=== PATIENT | male | born 1995 ===

== ENCOUNTER 2018-12-29 22:28 | Emergency (ER) | payer OTHER ==
[2018-12-29] MEDS ORDERED: METHYLPREDNISOLONE 125 MG INJ ONE (22:58)
[2018-12-29] MEDS ORDERED: AZITHROMYCIN 250 MG TAB ONE (22:59)
[2018-12-29] MEDS ORDERED: IPRATROPIUM BROM 0.5MG/2.5ML ONE (22:59)
[2018-12-29] MEDS ORDERED: ALBUTEROL 2.5 MG/3 ML NEB SOL ONE (22:59)
--- NOTE | 2018-12-30 | ER ---
Nurse's Notes [facility] Name: Flo Ariza Age: 23 yrs Sex: Male : 1995 Arrival Date: 12/29/2018 Time: 22:33 Bed 8 Private MD: Diagnosis: Asthma;Cough;Fever, unspecified Presentation: 12/29 22:49 Presenting complaint: Patient states: Reports he started having fever,congestion, SOB, ea fatigue and chest pain since Friday. Transition of care: patient was not received from another setting of care. Onset of symptoms was December 29, 2018. Risk Assessment: Do you want to hurt yourself or someone else? Patient reports no desire to harm self or others. Initial Sepsis Screen: Does the patient meet any 2 criteria? No. Patient's initial sepsis screen is negative. Does the patient have a suspected source of infection? No. Patient's initial sepsis screen is negative. Care prior to arrival: Medication(s) given: Motrin, Tylenol. 22:49 Method Of Arrival: Ambulatory ea 22:49 Acuity: ALISON 3 ea Triage Assessment: 22:52 General: Appears uncomfortable, Behavior is appropriate for age. Pain: Complains of ea pain in chest Also complains of reports chest pain with cough. Neuro: Level of Consciousness is awake, alert, obeys commands, Oriented to person, place, time, situation. Derm: Skin is pink, warm \T\ dry. Historical: - Allergies: 22:52 Bactrim; ea 22:52 PENICILLINS; ea - Home Meds: 22:52 None [Active]; ea - PMHx: 22:52 Asthma; ea - PSHx: 22:52 None; ea - Immunization history:: Adult Immunizations up to date. - Social history:: Smoking status: Patient/guardian denies using tobacco. - Ebola Screening: : No symptoms or risks identified at this time. Screenin:50 Abuse screen: Denies threats or abuse. Nutritional screening: No deficits noted. ea Tuberculosis screening: No symptoms or risk factors identified. Fall Risk None identified. Assessment: 23:03 General: Appears in no apparent distress. Behavior is calm, cooperative. Pain: Denies ak1 pain. Neuro: Level of Consciousness is awake, alert, obeys commands, Oriented to person, place, time, situation, Process Safety Management Engineer are equal bilaterally Moves all extremities. Full function. Cardiovascular: No deficits noted. Respiratory: Airway is patent Respiratory effort is even, unlabored, Respiratory pattern is regular, symmetrical, Breath sounds with wheezes. GI: No signs and/or symptoms were reported involving the gastrointestinal system. : No signs and/or symptoms were reported regarding the genitourinary system. EENT: No signs and/or symptoms were reported regarding the EENT system. Derm: Parent/caregiver reports the patient having fever. Musculoskeletal: No signs and/or symptoms reported regarding the musculoskeletal system. 12/30 00:09 Reassessment: Patient appears in no apparent distress at this time. Patient and/or ch family updated on plan of care and expected duration. Pain level reassessed. Patient is alert, oriented x 3, equal unlabored respirations, skin warm/dry/pink. Patient states feeling better. Patient states symptoms have improved. Vital Signs: 12/29 22:52 BP 125 / 92; Pulse 52; Resp 18; Temp 97.5(TE); Pulse Ox 97% on R/A; Weight 72.57 kg; ea Height 5 ft. 9 in. (175.26 cm); 23:42 Pulse 59; Resp 18; Pulse Ox 99% on R/A; ak1 12/30 00:09 BP 125 / 84; Pulse 62; Resp 16; Temp 98.5; Pulse Ox 99% on R/A; Pain 0/10; ch 12/29 22:52 Body Mass Index 23.63 (72.57 kg, 175.26 cm) ea ED Course: 12/29 22:33 Patient arrived in ED. cl3 22:47 Osmin Hanna NP is PHCP. pm1 22:47 Favian Alvarez MD is Attending Physician. pm1 22:50 Triage completed. ea 22:53 Patient has correct armband on for positive identification. Bed in low position. Call ea light in reach. Side rails up X2. 22:53 Arm band placed on right wrist. Patient placed in an exam room, on a stretcher, on ea pulse oximetry. 22:54 Angella Ariza, RN is Primary Nurse. ak1 23:03 Pulse ox on. NIBP on. Door closed. Lights dimmed. ak1 23:39 Chest Pa And Lat (2 Views) XRAY In Process Unspecified. EDMS 12/30 00:09 No apparent distress. Resting quietly. ch 00:09 No provider procedures requiring assistance completed. Patient did not have IV access ch during this emergency room visit. Administered Medications: 12/29 23:03 Drug: Albuterol - atroVENT (3:1) (2.5 mg - 0.5 mg) 3 ml Route: Nebulizer; ak1 23:32 Follow up: Response: No adverse reaction ak1 23:03 Drug: SOLU-Medrol 125 mg Route: IM; Site: left gluteus; ak1 23:32 Follow up: Response: No adverse reaction ak1 23:03 Drug: AZITHromycin 500 mg Route: PO; ak1 23:32 Follow up: Response: No adverse reaction ak1 Outcome: 23:59 Discharge ordered by . pm1 12/30 00:09 Discharged to home ambulatory. Condition: improved Discharge instructions given to patient, family, Instructed on discharge instructions, follow up and referral plans. medication usage, Demonstrated understanding of instructions, follow-up care, medications, Prescriptions given X 3. 00:10 Patient left the ED. Signatures: Dispatcher [employer] EDWA Catina Florez, RN RN Angella Ariza RN RN ak1 sOmin Hanna, GERI LOCKER ATTENDANT pm1 Court Yip RN RN ea Lewis, Charde cl3
--- NOTE | 2018-12-30 00:01 | EDPHYS ---
Physician Documentation [facility] Name: Flo Ariza Age: 23 yrs Sex: Male : 1995 Arrival Date: 12/29/2018 Time: 22:33 Bed 8 Private MD: ED Physician Favian Alvarez HPI: 12/29 23:03 This 23 yrs old Male presents to ER via Ambulatory with complaints of Fever. pm1 23:03 The patient reports fever, not measured (subjective). Onset: The symptoms/episode pm1 began/occurred 3 day(s) ago. Modifying factors: there are no obvious modifying factors. Associated signs and symptoms: Pertinent positives: cough, with green sputum, wheezing, Pertinent negatives: abdominal pain, diarrhea, headache, nausea, shortness of breath, sore throat, vomiting. Severity of symptoms: in the emergency department the symptoms are worse. The patient has not experienced similar symptoms in the past. The patient has not recently seen a physician. Historical: - Allergies: 22:52 Bactrim; ea 22:52 PENICILLINS; ea - Home Meds: 22:52 None [Active]; ea - PMHx: 22:52 Asthma; ea - PSHx: 22:52 None; ea - Immunization history:: Adult Immunizations up to date. - Social history:: Smoking status: Patient/guardian denies using tobacco. - Ebola Screening: : No symptoms or risks identified at this time. ROS: 23:03 Eyes: Negative for injury, pain, redness, and discharge, ENT: Negative for injury, pm1 pain, and discharge, Neck: Negative for injury, pain, and swelling. 23:03 Abdomen/GI: Negative for abdominal pain, nausea, vomiting, diarrhea, and constipation, Back: Negative for injury and pain, MS/Extremity: Negative for injury and deformity, Skin: Negative for injury, rash, and discoloration, Neuro: Negative for headache, weakness, numbness, tingling, and seizure. 23:03 Constitutional: Positive for fever, Negative for poor PO intake. 23:03 Cardiovascular: Positive for chest pain, with cough, of the mid-sternal area, deep breathing. 23:03 Respiratory: Positive for cough, wheezing, Negative for shortness of breath. Exam: 23:03 Constitutional: This is a well developed, well nourished patient who is awake, alert, pm1 and in no acute distress. Head/Face: Normocephalic, atraumatic. Eyes: Pupils equal round and reactive to light, extra-ocular motions intact. Lids and lashes normal. Conjunctiva and sclera are non-icteric and not injected. Cornea within normal limits. Periorbital areas with no swelling, redness, or edema. ENT: Nares patent. No nasal discharge, no septal abnormalities noted. Tympanic membranes are normal and external auditory canals are clear. Oropharynx with no redness, swelling, or masses, exudates, or evidence of obstruction, uvula midline. Mucous membranes moist. Neck: Trachea midline, no thyromegaly or masses palpated, and no cervical lymphadenopathy. Supple, full range of motion without nuchal rigidity, or vertebral point tenderness. No Meningismus. Chest/axilla: Normal chest wall appearance and motion. Nontender with no deformity. No lesions are appreciated. Cardiovascular: Regular rate and rhythm with a normal S1 and S2. No gallops, murmurs, or rubs. Normal PMI, no JVD. No pulse deficits. 23:03 Abdomen/GI: Soft, non-tender, with normal bowel sounds. No distension or tympany. No guarding or rebound. No evidence of tenderness throughout. Back: No spinal tenderness. No costovertebral tenderness. Full range of motion. Skin: Warm, dry with normal turgor. Normal color with no rashes, no lesions, and no evidence of cellulitis. MS/ Extremity: Pulses equal, no cyanosis. Neurovascular intact. Full, normal range of motion. 23:03 Respiratory: the patient does not display signs of respiratory distress, Respirations: normal, Breath sounds: wheezing: is heard in the right posterior upper lobe and right posterior middle lobe. 23:03 Neuro: Orientation: is normal, Motor: is normal, moves all fours. Vital Signs: 22:52 BP 125 / 92; Pulse 52; Resp 18; Temp 97.5(TE); Pulse Ox 97% on R/A; Weight 72.57 kg; ea Height 5 ft. 9 in. (175.26 cm); 23:42 Pulse 59; Resp 18; Pulse Ox 99% on R/A; ak1 12/30 00:09 BP 125 / 84; Pulse 62; Resp 16; Temp 98.5; Pulse Ox 99% on R/A; Pain 0/10; ch 12/29 22:52 Body Mass Index 23.63 (72.57 kg, 175.26 cm) ea MDM: 12/29 22:50 Patient medically screened. pm1 23:58 Data reviewed: vital signs. Data interpreted: Pulse oximetry: on room air is 99 %. pm1 Interpretation: normal. Counseling: I had a detailed discussion with the patient and/or guardian regarding: the historical points, exam findings, and any diagnostic results supporting the discharge/admit diagnosis, radiology results, the need for outpatient follow up, to return to the emergency department if symptoms worsen or persist or if there are any questions or concerns that arise at home. 12/29 22:52 Order name: Chest Pa And Lat (2 Views) XRAY pm1 Administered Medications: 23:03 Drug: Albuterol - atroVENT (3:1) (2.5 mg - 0.5 mg) 3 ml Route: Nebulizer; ak1 23:32 Follow up: Response: No adverse reaction ak1 23:03 Drug: SOLU-Medrol 125 mg Route: IM; Site: left gluteus; ak1 23:32 Follow up: Response: No adverse reaction ak1 23:03 Drug: AZITHromycin 500 mg Route: PO; ak1 23:32 Follow up: Response: No adverse reaction ak1 Disposition: 12/29/18 23:59 Discharged to Home. Impression: Asthma, Cough, Fever, unspecified. - Condition is Stable. - Discharge Instructions: Cough, Adult, Fever, Adult, [id number]. - Prescriptions for Zithromax Z- Luca 250 mg Oral Tablet - take 1 tablet by ORAL route as directed for 5 days Day 1 - take two (2) tablets one time. Day 2, 3, 4 , 5 take one (1) tablet once daily.; 6 tablet. Medrol (Luca) 4 mg Oral Tablets, Dose Pack - take 1 tablet by ORAL route as directed - follow package instructions; 1 packet. Albuterol Sulfate 90 mcg/actuation - inhale 1-2 puff by INHALATION route every 4-6 hours; 1 Inhaler. - Medication Reconciliation Form, Thank You Letter, Antibiotic Education, Prescription Opioid Use form. - Follow up: Emergency Department; When: As needed; Reason: Worsening of condition. Follow up: Private Physician; When: 2 - 3 days; Reason: Recheck today's complaints, Continuance of care, Re-evaluation by your physician. - Problem is new. - Symptoms have improved. Addendum: 12/31/2018 07:44 Co-signature as Attending Physician, Favian Alvarez MD I agree with the assessment and c ruano plan of care. Signatures: Dispatcher [employer] EDCatina Mccollum, RN Favian Youssef ch, MD MD cha Krenek, Amber RN RN ak1 Osmin Hanna NP STEAM PRESS TENDER pm1 Court Yip RN RN ea Corrections: (The following items were deleted from the chart) 12/30 00:10 12/29 23:59 12/29/2018 23:59 Discharged to Home. Impression: Asthma; Cough; Fever, ch unspecified. Condition is Stable. Forms are Medication Reconciliation Form, Thank You Letter, Antibiotic Education, Prescription Opioid Use. Follow up: Emergency Department; When: As needed; Reason: Worsening of condition. Follow up: Private Physician; When: 2 - 3 days; Reason: Recheck today's complaints, Continuance of care, Re-evaluation by your physician. Problem is new. Symptoms have improved. pm1
[2018-12-30 00:56] VITALS: O2SAT 99
[2018-12-30 00:58] VITALS: BP 125/84; TEMP 98.5
--- NOTE | 2018-12-30 08:30 | RAD REPORT ---
EXAM DESCRIPTION: Lilli Garcia (2 Views)12/29/2018 11:39 pm CLINICAL HISTORY: Cough COMPARISON: None FINDINGS: The lungs appear clear of acute infiltrate. The heart is normal size IMPRESSION: No acute abnormalities displayed
== END 2018-12-30 00:10 | disposition home or self-care (01) ==
LOC: ER 22:28
DX: J45.909 Unspecified asthma, uncomplicated (principal); R05 Cough; Z88.0 Allergy status to penicillin; Z88.1 Allergy status to other antibiotic agents
CPT/HCPCS: 71046; 94640; 96372; 99284; J2930